=== PATIENT | female | born 1950 | race Native Hawaiian/Other Pacific Islander ===

== ENCOUNTER 2016-12-21 17:11 | Emergency (ER) | payer OTHER, MEDICAID ==
[~2016-12-21] VITALS: Ht 157.5 cm; Wt 64.4 kg
[2016-12-21] MEDS ORDERED: METFORMIN 850 MG (17:28)
[2016-12-21] MEDS ORDERED: SIMVASTATIN TAB 20MG (17:28)
[2016-12-21] MEDS ORDERED: HYDROCODONE/APAP 5-325MG TABLET PO ONE (18:15)
[2016-12-21] MEDS ORDERED: HYDROCODONE/APAP 5-325MG TABLET ONE (18:23)
--- NOTE | 2016-12-21 18:27 | NUR ---
PT REC'D [facility] PO. PT POSITIONED FOR COMFORT, PT'S SON AT THE BEDSIDE.
--- NOTE | 2016-12-21 19:11 | NUR ---
SBAR REPORT TO PM SHIFT.
--- NOTE | 2016-12-21 19:31 | NUR ---
Patient out of unit for x ray via wheelchair
--- NOTE | 2016-12-21 19:48 | NUR ---
PATIENT BACK FROM X RAY WITH NO DISTRESS NOTED
--- NOTE | 2016-12-21 19:57 | NUR ---
Patient discharged to home in stable conditon WITH SON TAKING PATIENT . Written and verbal after care instructions given. Patient verbalizes understanding of instructions. WALKED OUT OF ER WITH STEADY GAIT. NO DISTRESS NOTED
[2016-12-21 19:58] VITALS: BP 145/78
== END 2016-12-21 19:58 | disposition home or self-care (01) ==
LOC: ER 17:13
DX: S16.1XXA Strain of muscle, fascia and tendon at neck level, initial encounter (principal); I10 Essential (primary) hypertension; E11.9 Type 2 diabetes mellitus without complications; Z79.4 Long term (current) use of insulin; V43.52XA Car driver injured in collision with other type car in traffic accident, initial encounter; Y93.89 Activity, other specified; Y92.413 State road as the place of occurrence of the external cause; Y99.9 Unspecified external cause status
CPT/HCPCS: 71010; A4663